=== PATIENT | male | born 1940 | race Caucasian/White ===

== ENCOUNTER 2020-08-10 08:26 | Outpatient (CLI) | payer BC ==
--- NOTE | 2020-08-10 09:35 | MRI ---
MR the lumbar spine without contrast INDICATION: Acute lumbar radiculopathy COMPARISON: Prior MR the lumbar spine from prior radiology associates dated May 05, 2013. TECHNIQUE: Multiplanar multisequence MR images were obtained of lumbar spine without IV contrast. FINDINGS: Bone marrow: There is multilevel Modic endplate degenerative change. There is vacuum disc phenomenon seen within all lumbar intervertebral disc levels. No definite acute fracture is evident. Distal spinal cord and conus: Normal. The conus seen to terminate at L1. Visualized retroperitoneum and paraspinal soft tissues: Normal. Vertebral levels: L5-S1: There is a broad-based disc bulge with moderate right and mild left facet joint degenerative c hange and loss of disc space height. Constellation of degenerative findings induces moderate left and mild right neural foraminal narrowing which is stable.. L4-5: There is a broad-based disc bulge with severe facet joint degenerative change and ligamentum fl avum hypertrophy inducing severe central canal narrowing with moderate bilateral neural foraminal narrowing. The degree of the central canal narrowing has significantly worsened from the prior examin ation. The bilateral neural foraminal narrowing is also worsened from the prior exam. L3-4: There is a broad-based disc osteophyte complex with facet hypertrophy inducing moderate to galo re central canal narrowing with moderate right and moderate to severe left neural foraminal narrowing. This has worsened from the prior exam. L2-3: There is a disc osteophyte complex with facet joint degenerative change inducing now moderate c entral canal narrowing with moderate left and [id number] right neural foraminal narrowing that has worsened from the prior exam. L1-L2: There is a broad-based disc bulge and facet hypertrophy inducing mild central canal narrowing and mild bilateral neural foraminal narrowing that has mildly worsened from the prior exam. T12-L1: There is a broad-based disc bulge causing some mild effacement of ventral subarachnoid space without conus compression. No appreciable neural foraminal narrowing is evident. IMPRESSION: 1. Worsening multilevel central canal and neural foraminal narrowing from L1-2 through L4-5. 2. Stable moderate left and mild right neural foraminal narrowing at L5-S1.
== END 2020-08-10 08:27 | disposition home or self-care (01) ==
LOC: TBSIIMAG 08:26
PROVIDERS: ATTEND Anesthesiology Pain Medicine
DX: M54.16 Radiculopathy, lumbar region (principal); M48.061 Spinal stenosis, lumbar region without neurogenic claudication; M48.07 Spinal stenosis, lumbosacral region
CPT/HCPCS: 72148

== ENCOUNTER 2020-11-23 10:45 | Inpatient (IN) | payer BC, MEDICARE ==
[2020-11-24 16:47] VITALS: BMI 32.5
--- NOTE | 2020-11-28 05:49 | HP ---
REASON FOR H AND P: Surgery on 11/28/2020, case #[id number]. CHIEF COMPLAINT: Lower back and leg pain. HISTORY OF PRESENT ILLNESS: Mr. Buchanan is a 79-year-old male who has been having lower back pain for 10 years. He attributes the pain to lifting a heavy bucket. Pain and paresthesia radiate into his right lateral ankle and all his toes. He can only walk two blocks before he has to stop. Bending forward alleviates his symptoms. He reports his right leg becomes weaker the farther he walks. Physical therapy and spinal canal injections have not alleviated his symptom. He denies bladder or bowel dysfunction. REVIEW OF SYSTEMS: CONSTITUTIONAL: Denies fever or chills. ENT: Denies change in vision or hearing. CARDIAC: Denies chest pain, shortness of breath, or diaphoresis. PULMONARY: Denies shortness of breath, cough, or hemoptysis. GI: Denies fecal incontinence, abdominal pain, nausea, vomiting, diarrhea, change in stool formation and consistency. : Denies urinary incontinence, trouble with urination, frequency of urination, or bloody urine. SKIN: Denies skin rash, bruising, bleeding, skin masses. MUSCULOSKELETAL: As per history of present illness. NEUROLOGIC: As per history of present illness. PSYCHOLOGICAL: Denies anxiety, depression, or behavior changes. PAST MEDICAL HISTORY: Hypertension, hyperlipidemia, CAD, aortic stenosis. PAST SURGICAL HISTORY: Knee surgery, Dr. Stewatr, 1994. Cardiac cath and stent to RCA, Dr. Kennedy in March 2009. Aortic valve replacement. Right TKR, , December 2014. HOSPITALIZATIONS: As above surgeries. FAMILY HISTORY: Father at 84 years, diagnosed with heart disease. Mother at 70 years, diagnosed with cancer. SOCIAL HISTORY: Nonsmoker. Denies illicit drugs. Denies alcohol use. MEDICATIONS: 1. Folic acid 1 mg. 2. Dupixent 300 mg/2 mL. 3. Baby aspirin. 4. Honaker-3 1000 mg. 5. Amlodipine 20 mg. 6. Pantoprazole 40 mg. 7. Plavix 75 mg. 8. [place] 7.5/325 mg. 9. Metoprolol 50 mg. 10. Centrum Silver. ALLERGIES: NO KNOWN DRUG ALLERGIES. PHYSICAL EXAMINATION: VITAL SIGNS: Weight 219, height 69 inches, BMI 32.34. HEENT: Pupils are equal. Extraocular movements are intact. NECK: Soft, supple. No masses are noted. Range of motion is intact and nonpainful. NEUROLOGIC: Awake, alert, and oriented x3. Memory, attention, fund of knowledge normal. Cranial nerves are grossly intact. Motor exam, there is normal strength in the iliopsoas, quadriceps, hamstrings, anterior tib, gastroc veins and toe flexors. There is mild EHL weakness on the right. Sensory exam, bilateral L5, loss of sensation. Right S1 is greater than left. Reflex exam is hypoactive and symmetric. IMAGING: MRI of the L-spine, stenosis at L2-3, L3-4, L4-5. Right L5-S1 foraminal collapse. X-ray of the L-spine flexion-extension stable. ASSESSMENT: 1. Lumbar foraminal stenosis. 2. Lumbar stenosis with neurogenic claudication. PLAN: 1. Laminectomy L2-S1 and TLIF L5-S1 for right foraminal collapse. 2. Preop labs, CBC, PT, PTT, COVID-19. 3. Clearance. 4. Off Plavix. Can continue baby aspirin if necessary. INFORMED CONSENT: We discussed the indications, risks, benefits, alternatives, and expected results from surgery. The risks discussed included, but were not limited to, bleeding, infection, CSF leak, nerve damage, weakness, incontinence, cauda equina injury, arachnoiditis, paralysis, ventilator dependency, wheelchair dependency, loss of vision, hardware misplacement, cardiopulmonary complications of anesthesia or . Long-term complications discussed included, but were not limited to, degeneration of surrounding disk and future surgery. He understands the risks and is willing to proceed. Job ID: [id number]
[2020-11-28] MEDS ORDERED: Bupivacaine PF 0.5% 30 ML VIAL ONE (06:10)
[2020-11-28] MEDS ORDERED: EPINEPHrine 1 MG/ML AMP ONE (06:10)
[2020-11-28] MEDS ORDERED: Thrombin 5000 UNITS/5 ML VIAL ONE (06:10)
[2020-11-28] MEDS ORDERED: Fentanyl 250 MCG/5 ML VIAL ONE (06:46)
[2020-11-28] MEDS ORDERED: Ketamine 50 MG/ML (10ML VIAL) ONE (06:46)
[2020-11-28] MEDS ORDERED: Albumin 5% 500 ML ONE (06:46)
[2020-11-28 07:05] LABS: Anion Gap 12 mmol/L (10-20); BUN (Urea Nitrogen) 19 mg/dL (8.4-25.7); Calc. Creatinine Clearance 109 mL/min (70-130); Calcium 8.9 mg/dL (7.8-10.44); Carbon Dioxide 26 mmol/L (23-31); Chloride 106 mmol/L (98-107); Glucose 98 mg/dL (83-110); Potassium 3.8 mmol/L (3.5-5.1); Sodium 140 mmol/L (136-145)
[2020-11-28] MEDS ORDERED: Rocuronium Bromide 10 MG/ML (10ML VIAL) ONE (10:10)
[2020-11-28] MEDS ORDERED: ePHEDrine 50 MG/ML VIAL ONE (10:10)
[2020-11-28] MEDS ORDERED: Dexamethasone 20 MG/5 ML VIAL ONE (10:10)
[2020-11-28] MEDS ORDERED: PROPOFOL 200 MG/20 ML VIAL ONE (10:10)
[2020-11-28] MEDS ORDERED: Vecuronium 10 MG VIAL ONE (10:10)
[2020-11-28] MEDS ORDERED: Lidocaine 1% PF 5 ML VIAL ONE (10:10)
[2020-11-28] MEDS ORDERED: Ondansetron PF 4 MG/2 ML Vial ONE (10:10)
[2020-11-28] MEDS ORDERED: SUGAMMADEX SODIUM 200 MG/2 ML VIAL ONE (13:03)
[2020-11-28] MEDS ORDERED: traMADol HCl 50 MG TAB PO PRN (13:42)
[2020-11-28] MEDS ORDERED: Tamsulosin HCl 0.4 MG CAP PO PRN (13:42)
[2020-11-28] MEDS ORDERED: Promethazine HCl 25 MG/ML VIAL IM PRN ×2 (13:42→14:09)
[2020-11-28] MEDS ORDERED: Mag-Al 1200 mg/1200 mg/30 ML UDCUP PO PRN (13:42)
[2020-11-28] MEDS ORDERED: Promethazine 25 MG TAB PO PRN (13:42)
[2020-11-28] MEDS ORDERED: Scopolamine 1.5 mg/72 hour Patch TD PRN (13:42)
[2020-11-28] MEDS ORDERED: diphenhydrAMINE 25 MG CAP PO PRN (13:42)
[2020-11-28] MEDS ORDERED: Fentanyl 100 MCG/2 ML VIAL ONE ×2 (13:43→15:56)
[2020-11-28] MEDS ORDERED: DUPILUMAB 300 MG/2 ML FS SCH (14:00)
[2020-11-28] MEDS ORDERED: Promethazine HCl 25 MG/ML VIAL SLOW IVP PRN (14:09)
[2020-11-28] MEDS ORDERED: Morphine Sulfate 2 MG/ML SYRINGE SLOW IVP PRN (14:09)
[2020-11-28] MEDS ORDERED: HYDROmorphone 2 MG/ML VIAL SLOW IVP PRN (14:09)
[2020-11-28] MEDS ORDERED: Ondansetron HCl/PF 4 MG/2 ML Vial IVP PRN (14:09)
[2020-11-28] MEDS ORDERED: PACU-Morphine 4MG/ML VIAL SLOW IVP PRN (14:09)
[2020-11-28] MEDS ORDERED: Ketorolac Tromethamine 30 MG/ML VIAL ONE (14:40)
[2020-11-28] MEDS: CEFAZOLIN 2 GM in Premix Bag 1 BAG IVPB SCH ×2 (17:58→21:30)
--- NOTE | 2020-11-28 19:29 | OP ---
DATE OF PROCEDURE: 11/28/2020 METALLURGIST HELPER: Davon Amezquita PA-C. PREOPERATIVE INDICATION: Treat pain and prevent neurological deterioration. PREOPERATIVE DIAGNOSIS: Multilevel lumbar stenosis with severe neurogenic claudication, right L5-S1 foraminal stenosis from collapse of the L5-S1 interspace with L5 radiculopathy. POSTOPERATIVE DIAGNOSIS: Multilevel lumbar stenosis with severe neurogenic claudication, right L5-S1 foraminal stenosis from collapse of the L5-S1 interspace with L5 radiculopathy. OPERATIVE PROCEDURE: 1. Decompressive laminectomy, medial facetectomy, and foraminotomy at L2-3, 3-4, 4-5, and 5-1. 2. Transforaminal lumbar interbody arthrodesis, L5-S1. 3. Pedicle screw and luis alberto instrumentation, L5-S1. 4. Placement of intervertebral biomechanical device, L5-S1. 5. Posterolateral arthrodesis, L5-S1. 6. Local morselized autograft morselized allograft. PREOPERATIVE MEDICATIONS: Ancef 2 g IV. DRAIN NUMBER: Zero. DRAIN TYPE: None. DESCRIPTION OF PROCEDURE: The patient was brought to the operating room. General endotracheal anesthesia was induced. The patient was carefully positioned on the Thomas frame with his chest and hips supported by the appropriate attachments for the Thomas frame. A lateral fluoro radiograph was used to plan our incision. The lumbar skin was sterilely prepped and draped. We opened a midline incision with a 10 blade knife and we controlled bleeding with bipolar and monopolar cautery. We used monopolar cautery to dissect through subcutaneous tissues to the thoracodorsal fascia. We incised the fascia in midline and reflected the paraspinal muscles off the spinous process and lamina of L2, L3, L4, L5 and the top of the sacrum. A lateral fluoro radiograph confirmed the levels upon which we were operating. We then used an Adson rongeur to remove spinous processes from L2 to the top of the sacrum. Using Kerrison rongeur, we fashioned a laminectomy down the midline. Using a high-speed drill, we thinned the remaining portion of the lamina on both sides of the spinal canal and then used a Kerrison rongeur to widen our laminectomy defect down the right and the left sides. We had to perform foraminotomies over the exiting nerve roots to ensure the L2, L3, L4, L5 nerve roots were decompressed in their respective foramina. The tightest foramen was the right L5-S1 foramen as predicted by the MRI scan. With the decompression of the canal secure, we focused our attention on the interbody arthrodesis at L5-S1 on the right. We performed a complete facetectomy at L5-S1 on the right side. We identified the L5 nerve root. We widely decompressed in its foramen and then we used the foramen as our access to the intervertebral space. We incised the space with a 15 blade knife and removed disk contents using curettes and rongeurs. We used a rectangular bone rasp to measure the height of the interspace to 12 mm. A 12 mm PEEK intervertebral graft was brought into the field. This was loaded with demineralized bone matrix and morselized autograft and advanced into the interspace under radiographic guidance to the appropriate depth. The morcellized autograft was from our laminectomy bone which was cleaned of soft tissue attachments, morcellized, and added into demineralized bone matrix as our fusion substrate. With the interbody graft in place, we turned our attention to pedicle screw instrumentation. Using bony anatomic landmarks, palpation of the medial portion of the pedicles, and a lateral fluoro radiograph as our guide, we chose entry points for pedicle screws at L5 and S1 bilaterally. We drilled out our entry points and used a bone awl to advance through the pedicles into the vertebral bodies. We used a threaded tap to tap each of the trajectories and then placed our pedicle screws at L5 and S1 bilaterally. A 360-degree image set was generated with our isocentric C-arm. This confirmed adequate positioning of our pedicle screw instrumentation. We then irrigated copiously with bacitracin irrigation. We decorticated the transverse process of L5 and the sacral ala bilaterally. Over the decorticated bone, we left demineralized bone matrix and morselized autograft as our posterolateral fusion substrate. We brought rods into the screw heads and tightened caps over the rods. Using a torque/counter-torque mechanism, we ensured adequate tightness. Before final tightening, we applied a compressive force across the L5-S1 interspace to keep our interbody graft in place. We ensured the L5 nerve roots were still decompressed in their foramina. We then waxed the bone edges. We controlled bleeding with gentle bipolar cautery. We infused local anesthetic in the paraspinal muscles. We irrigated the center of the wound once again. We treated the wound with vancomycin powder and we closed in anatomical layers. We applied a sterile dressing. This was a clean case, no contamination. Job ID: [id number]
[2020-11-28] MEDS: Sodium Chloride 0.9% 1,000 ML IV SCH (19:51)
[2020-11-28] MEDS: Metoprolol Tartrate 50 MG TAB PO SCH (20:23)
[2020-11-28] MEDS: Atorvastatin Calcium 20 MG TAB PO SCH (20:23)
--- NOTE | 2020-11-28 20:48 | PDOC.HHP ---
Hospitalist HPI Chronic low back pain with neurogenic claudication History of Present Illness: PCP: Dr. Fine The patient is a 79-year-old male with a past medical history significant for HTN, CAD (x1 stent), HLD, GERD, eczema and aortic stenosis that presents to the hospital as a direct admit for a scheduled laminectomy. Patient has a history of lumbar stenosis with severe neurogenic claudication. The patient was admitted for decompression laminectomy of L2-S1 by Dr. Workman. Patient reports that he has had low back pain for 10 years associated with leg pain that is progressively gotten worse. We were consulted for medical management of his chronic conditions. ED Course: Direct admit. Allergies/Adverse Reactions: Allergy/AdvReac Type Severity Reaction Status Date / Time No Known Allergies Allergy Unverified 11/28/20 20:10 Home Medications: Medication Instructions Recorded Confirmed Type Amlodipine Besylate [amLODIPine 10 mg PO DAILY 11/24/20 11/24/20 History Besylate] Aspirin [Aspirin EC] 81 mg PO DAILY 11/24/20 11/24/20 History Atorvastatin Calcium 20 mg PO QPM 11/24/20 11/24/20 History Clopidogrel Bisulfate [Plavix] 75 mg PO DAILY 11/24/20 11/24/20 History Dupilumab [Dupixent Pen] 300 mg SQ Q14D 11/24/20 11/24/20 History Folic Acid 400 mg PO DAILY 11/24/20 11/24/20 History HYDROcodone Bit/APAP 7.5/325 1 tab PO Q6HR PRN 11/24/20 11/24/20 History [[place] 7.5/325] Metoprolol Tartrate [Lopressor] 50 mg PO BID 11/24/20 11/24/20 History Multivit-Min/FA/Lycopen/Lutein 1 each PO DAILY 11/24/20 11/24/20 History [Centrum Silver Men Tablet] [place]-3 Fatty Acids/Fish Oil [Fish 1,400 cap PO DAILY 11/24/20 11/24/20 History Oil 1,000 mg Capsule] Pantoprazole [Protonix] 40 mg PO QPM 11/24/20 11/24/20 History Past History: PMHx: HTN, HLD, aortic stenosis, CAD, GERD, eczema PSHx: Bilateral total knee replacement, cardiac cath with stent (2008), AVR FHx: Contributory for cardiac disease and cancer Social: Patient with a spouse at home. No history of smoking, illicit drug use or heavy alcohol intake. He is independent. He does not work. Hospitalist HPI ROS Constitutional: denies: fever, chills Eyes: denies: vision change, redness ENT: denies: throat swelling Respiratory: denies: cough, shortness of breath, hemoptysis, sputum, wheezing Cardiovascular: denies: chest pain, palpitations, edema, light headedness Gastrointestinal: denies: nausea, vomiting, abdominal pain, diarrhea, constipation Genitourinary: denies: dysuria, hematuria Skin: denies: rash, bruising Neurological: denies: incoordination, change in speech, confusion All other systems reviewed; all pertinent +/- noted in HPI/Subj Hospitalist Exam Vitals: Vital Signs (12 hours) Temp Pulse Resp BP Pulse Ox 11/28/20 18:35 98.6 F 70 18 156/75 H 94 L Weight Weight 220 lb General Appearance: NAD, awake alert. negative: ill appearing Eye: anicteric sclera ENT: normocephalic atraumatic Neck: supple, no lymphadenopathy Heart: RRR, no murmur, no gallops, no rubs, irregular Respiratory: CTAB, no wheezes, no rales, no ronchi, no tachypnea Gastrointestinal: soft, non-tender, non-distended, normal bowel sounds, no guarding, no rigidity Extremities: no cyanosis, no edema Skin: no rashes Neurological: cranial nerve grossly intact, no focal deficits Psychiatric: normal affect, A&O x 3 Hospitalist Results Result Diagrams: 11/28/20 06:40 Lab results: Laboratory Last Values Sodium 140 mmol/L (136-145) 11/28/20 06:40 Potassium 3.8 mmol/L (3.5-5.1) 11/28/20 06:40 Chloride 106 mmol/L (98-107) 11/28/20 06:40 Carbon Dioxide 26 mmol/L (23-31) 11/28/20 06:40 Anion Gap 12 mmol/L (10-20) 11/28/20 06:40 BUN 19 mg/dL (8.4-25.7) 11/28/20 06:40 Creatinine 0.79 mg/dL (0.7-1.3) 11/28/20 06:40 Estimated GFR (MDRD) Greater than 90 11/28/20 06:40 Glucose 98 mg/dL (83-110) 11/28/20 06:40 Calcium 8.9 mg/dL (7.8-10.44) 11/28/20 06:40 Blood Type A POSITIVE 11/28/20 06:55 Antibody Screen NEGATIVE 11/28/20 06:40 Hospitalist H&P A/P (1) CAD (coronary artery disease) Code(s): I25.10 - ATHSCL HEART DISEASE OF [place] CORONARY ARTERY W/O ANG PCTRS Status: Chronic (2) HTN (hypertension) Code(s): I10 - ESSENTIAL (PRIMARY) HYPERTENSION Status: Chronic (3) HLD (hyperlipidemia) Code(s): E78.5 - HYPERLIPIDEMIA, UNSPECIFIED Status: Chronic (4) Aortic stenosis Code(s): I35.0 - NONRHEUMATIC AORTIC (VALVE) STENOSIS Status: Chronic (5) Eczema Code(s): L30.9 - DERMATITIS, UNSPECIFIED Status: Chronic (6) GERD (gastroesophageal reflux disease) Code(s): K21.9 - GASTRO-ESOPHAGEAL REFLUX DISEASE WITHOUT ESOPHAGITIS Status: Chronic (7) Lumbar stenosis with neurogenic claudication Code(s): M48.062 - SPINAL STENOSIS, LUMBAR REGION WITH NEUROGENIC CLAUDICATION Status: Chronic Plan: #CAD Stent x1 (2008) AVR Agree with continuing home BB, CCB, baby aspirin. Agree with holding Plavix. Neurosurgery to determine the appropriate time to restart Plavix. #HTN Chronic, stable. Agree with restarting home dose BB and CCB. #HLD Agree with restarting home dose atorvastatin. #Aortic stenosis Status post AVR. #Eczema Chronic. Takes dupilumab q. 14 days. #GERD Agree with restarting home dose Protonix. #Lumbar stenosis with neurogenic claudication POD #0 L2-S[address] Workman Plan per neurosurgery. CODE STATUS full code. Discussed the case with attending physician, Dr. Rob, who agrees with plan of care.
[2020-11-28] MEDS: Acetaminophen 325 MG TAB PO PRN (21:33)
[2020-11-29] MEDS: Sodium Chloride 0.9% 1,000 ML IV SCH ×2 (00:07→15:54)
[2020-11-29 06:40] LABS: #Lymphocytes 1.1 thou/uL (1.20-3.40); #Monocytes 1.6 thou/uL (0.11-0.59); %Basophils 0.1 % (0.0-1.0); %Eosinophils 0.1 % (0.0-10.0); %Lymphocytes 8.3 % (21.0-51.0); %Monocytes 11.4 % (0.0-10.0); %Neutrophils 80.1 % (42.0-75.0); Hemoglobin 10.5 g/dL (14.0-18.0); Mean Corpuscular Hemoglobin 35.2 pg (27.0-31.0); Mean Platelet Volume 8.2 fL (7.4-10.4); Platelet Count 219 thou/uL (130-400); RBC Distribution Width 11.7 % (11.5-14.5); Red Blood Cell (RBC) Count 2.98 mill/uL (4.70-6.10); White Blood Cell (WBC) Count 13.7 thou/uL (4.8-10.8)
[2020-11-29 07:02] LABS: Anion Gap 9 mmol/L (10-20); BUN (Urea Nitrogen) 21 mg/dL (8.4-25.7); Calc. Creatinine Clearance 115 mL/min (70-130); Carbon Dioxide 27 mmol/L (23-31); Chloride 106 mmol/L (98-107); Glucose 121 mg/dL (83-110); Potassium 4.7 mmol/L (3.5-5.1); Sodium 137 mmol/L (136-145)
--- NOTE | 2020-11-29 07:06 | PRG ---
DATE OF SERVICE: 11/29/2020 Mr. Buchanan is one day out from decompression over multiple segments of his lumbar spine and a fusion at L5-S1. His legs feel better than they did before surgery, especially the right leg which was particularly bad before his operation. Overnight, no fevers have been recorded on the electronic chart. Blood pressures have been in the 110s to 140s. There is good neurological function including both strength and sensation in both lower extremities. Hemoglobin is 10.5 this morning. We are going to mobilize Mr. Buchanan today. When he gets up and out of bed, he can have the brace on. He does not need it when he is sleeping. He is going to practice getting in and out of bed. He will practice using the restroom. If he is walking around the nurses station multiple times and he is safe for activities of daily living, he can be discharged. Otherwise, that can happen tomorrow. We discussed wound care and followup arrangements. Job ID: [id number] [facility]
[2020-11-29] MEDS: Folic Acid 1 MG TAB PO SCH (08:08)
[2020-11-29] MEDS: Amlodipine 10 MG TAB PO SCH (08:08)
[2020-11-29] MEDS: Metoprolol Tartrate 50 MG TAB PO SCH ×2 (08:08→21:08)
[2020-11-29] MEDS: HYDROcodone/Acetaminophen 7.5/325 mg Tablet PO PRN ×2 (10:20→18:15)
--- NOTE | 2020-11-29 14:45 | PDOC.HOSPP ---
- Subjective Encounter Date: 11/29/20 Encounter Time: 10:28 Subjective: Patient seen this morning. He is doing well. Participated in his physical therapy. He has a black color brace can be worn during ambulation. - Objective Vital Signs & Weight: Vital Signs (12 hours) Temp Pulse Resp BP BP Pulse Ox 11/29/20 11:02 98.4 F 68 18 120/68 93 L 11/29/20 08:08 65 110/64 11/29/20 07:26 98.4 F 65 18 110/56 L 94 L 11/29/20 03:33 98.4 F 59 L 14 112/68 95 Weight Weight 220 lb I&O: 11/28/20 11/29/20 11/30/20 06:59 06:59 06:59 Intake Total 1185 Balance 1185 Result Diagrams: 11/29/20 06:00 11/29/20 06:00 Hospitalist ROS - Medication Medications: Active Medications Generic Name Dose Route Start Last Admin Trade Name Freq PRN Reason Stop Dose Admin Acetaminophen 650 mg 11/28/20 13:42 11/28/20 21:33 Acetaminophen 325 Mg Tab PO 650 mg Q4H PRN Administration Headache/Fever or Pain Hydrocodone Bitart/Acetaminophen 1 tab 11/28/20 13:47 11/29/20 10:20 Hydrocodone/Acetaminophen 7.5/325 Mg Tablet PO 1 tab Q6H PRN Administration Moderate to Severe Pain (6-10) Amlodipine Besylate 10 mg 11/29/20 09:00 11/29/20 08:08 Amlodipine 10 Mg Tab PO Not Given DAILY KEISHA Atorvastatin Calcium 20 mg 11/28/20 21:00 11/28/20 20:23 Atorvastatin Calcium 20 Mg Tab PO 20 mg QPM KEISHA Administration Diphenhydramine HCl 25 mg 11/28/20 13:42 11/29/20 03:38 Diphenhydramine 25 Mg Cap PO 25 mg Q6H PRN Administration Itching Folic Acid 0.5 mg 11/29/20 09:00 11/29/20 08:08 Folic Acid 1 Mg Tab PO 0.5 mg DAILY KEISHA Administration Sodium Chloride 1,000 mls @ 75 mls/hr 11/28/20 13:45 11/29/20 00:07 Normal Saline 0.9% IV 1,000 mls .[id number] KEISHA Administration Metoprolol Tartrate 50 mg 11/28/20 21:00 11/29/20 08:08 Metoprolol Tartrate 50 Mg Tab PO Not Given BID [facility] Pantoprazole Sodium 40 mg 11/28/20 21:00 11/28/20 20:23 Pantoprazole 40 Mg Tab PO 40 mg QPM KEISHA Administration Hospitalist Exam Vitals: Vital Signs (12 hours) Temp Pulse Resp BP BP Pulse Ox 11/29/20 11:02 98.4 F 68 18 120/68 93 L 11/29/20 08:08 65 110/64 11/29/20 07:26 98.4 F 65 18 110/56 L 94 L 11/29/20 03:33 98.4 F 59 L 14 112/68 95 Weight Weight 220 lb General Appearance: NAD, awake alert Eye: PERRL ENT: normocephalic atraumatic Neck: supple Heart: RRR, normal peripheral pulses Respiratory: CTAB, normal chest expansion Gastrointestinal: soft, normal bowel sounds Neurological: cranial nerve grossly intact, no new deficit Musculoskeletal: normal tone Psychiatric: normal affect, normal behavior, A&O x 3 Hosp A/P - Plan CAD (coronary artery disease) Code(s): I25.10 - ATHSCL HEART DISEASE OF [place] CORONARY ARTERY W/O ANG PCTRS Status: Chronic (2) HTN (hypertension) Code(s): I10 - ESSENTIAL (PRIMARY) HYPERTENSION Status: Chronic (3) HLD (hyperlipidemia) Code(s): E78.5 - HYPERLIPIDEMIA, UNSPECIFIED Status: Chronic (4) Aortic stenosis Code(s): I35.0 - NONRHEUMATIC AORTIC (VALVE) STENOSIS Status: Chronic (5) Eczema Code(s): L30.9 - DERMATITIS, UNSPECIFIED Status: Chronic (6) GERD (gastroesophageal reflux disease) Code(s): K21.9 - GASTRO-ESOPHAGEAL REFLUX DISEASE WITHOUT ESOPHAGITIS Status: Chronic (7) Lumbar stenosis with neurogenic claudication Code(s): M48.062 - SPINAL STENOSIS, LUMBAR REGION WITH NEUROGENIC CLAUDICATION Status: Chronic Plan: #Lumbar stenosis with neurogenic claudication L2-S1 shelli by Dr. Workman on Leukocytosis secondary to above -Monitor the trend #CAD Stent x1 (2008) AVR Agree with continuing home BB, CCB, baby aspirin. Agree with holding Plavix. Neurosurgery to determine the appropriate time to restart Plavix. #HTN Chronic, stable. Agree with restarting home dose BB and CCB. #HLD Agree with restarting home dose atorvastatin. #Aortic stenosis Status post TAVR. #Eczema, Chronic. Takes dupilumab q. 14 days. #GERD Agree with restarting home dose Protonix. CODE STATUS full code. Ongoing physical therapy and possible inpatient rehab
[2020-11-29] MEDS: Acetaminophen 325 MG TAB PO PRN ×2 (17:16→23:42)
[2020-11-29] MEDS: Atorvastatin Calcium 20 MG TAB PO SCH (21:08)
[2020-11-29] MEDS: tiZANidine HCl 4 MG TAB PO PRN (23:42)
[2020-11-30] MEDS: Sodium Chloride 0.9% 1,000 ML IV SCH ×2 (04:33→20:21)
[2020-11-30 06:54] LABS: #Lymphocytes 1.2 thou/uL (1.20-3.40); #Monocytes 1.5 thou/uL (0.11-0.59); #Neutrophils 9.3 thou/uL (1.40-6.50); %Basophils 0.3 % (0.0-1.0); %Eosinophils 0.3 % (0.0-10.0); %Lymphocytes 10.1 % (21.0-51.0); %Monocytes 12.1 % (0.0-10.0); %Neutrophils 77.1 % (42.0-75.0); Hemoglobin 9.9 g/dL (14.0-18.0); Mean Corpuscular HGB CONC 34.8 g/dL (32.0-36.0); Mean Corpuscular Hemoglobin 34.9 pg (27.0-31.0); Mean Platelet Volume 8.1 fL (7.4-10.4); Platelet Count 205 thou/uL (130-400); RBC Distribution Width 11.5 % (11.5-14.5); Red Blood Cell (RBC) Count 2.85 mill/uL (4.70-6.10); White Blood Cell (WBC) Count 12.1 thou/uL (4.8-10.8)
[2020-11-30 07:05] LABS: Anion Gap 10 mmol/L (10-20); BUN (Urea Nitrogen) 16 mg/dL (8.4-25.7); Calc. Creatinine Clearance 121 mL/min (70-130); Calcium 8.1 mg/dL (7.8-10.44); Carbon Dioxide 27 mmol/L (23-31); Chloride 102 mmol/L (98-107); Glucose 107 mg/dL (83-110); Potassium 4.5 mmol/L (3.5-5.1); Sodium 134 mmol/L (136-145)
[2020-11-30] MEDS: Folic Acid 1 MG TAB PO SCH (09:09)
[2020-11-30] MEDS: Metoprolol Tartrate 50 MG TAB PO SCH ×2 (09:09→20:21)
[2020-11-30] MEDS: Amlodipine 10 MG TAB PO SCH (09:09)
[2020-11-30] MEDS: Morphine 2 MG/ML VIAL SLOW IVP PRN ×2 (09:14→14:01)
[2020-11-30] MEDS: tiZANidine HCl 4 MG TAB PO PRN ×2 (09:14→20:24)
--- NOTE | 2020-11-30 11:29 | PRG ---
DATE OF SERVICE: 11/30/2020 I saw Kel Buchanan in his hospital room this morning. He and his were concerned about drainage from the wound. He started feeling a little bit ill yesterday afternoon and has not done much physical therapy this morning. He did walk yesterday, noticed his legs were feeling better than they did before surgery, but the back was sore. Maximum temperature I see recorded is 99.8 degrees Fahrenheit, blood pressure is in the 120s to 130s. There is good neurological function in lower extremities. I will encourage Mr. Buchanan to use a Voldyne incentive spirometer 10 times every hour to expand his lungs. I will check a UA and urine culture to look for urinary tract infection. We will encourage mobilization is the best treatment for muscle spasm and the amount of drainage, although noteworthy is not terribly concerning to me. Bandages can be reapplied until it stops which it will. Job ID: [id number] [facility]
--- NOTE | 2020-11-30 12:58 | PDOC.HOSPP ---
- Subjective Encounter Date: 11/30/20 Encounter Time: 11:00 Subjective: Patient seen this morning she she is quite nauseated throwing up surgical site on his back has bloody discharge. Nursing aware of that. Neurosurgery will be notified. He also has a headache. Analgesic ordered. - Objective Vital Signs & Weight: Vital Signs (12 hours) Temp Pulse Resp BP Pulse Ox 11/30/20 12:00 98.1 F 68 16 122/66 93 L 11/30/20 07:34 99.8 F H 76 16 134/69 96 11/30/20 05:08 98.6 F 69 16 125/70 94 L Weight Weight 220 lb I&O: 11/29/20 11/30/20 12/01/20 06:59 06:59 06:59 Intake Total 1185 1920 Balance 1185 1920 Result Diagrams: 11/30/20 06:35 11/30/20 06:35 Hospitalist ROS - Medication Medications: Active Medications Generic Name Dose Route Start Last Admin Trade Name Freq PRN Reason Stop Dose Admin Acetaminophen 650 mg 11/28/20 13:42 11/29/20 23:42 Acetaminophen 325 Mg Tab PO 650 mg Q4H PRN Administration Headache/Fever or Pain Hydrocodone Bitart/Acetaminophen 1 tab 11/28/20 13:47 11/29/20 18:15 Hydrocodone/Acetaminophen 7.5/325 Mg Tablet PO 1 tab Q6H PRN Administration Moderate to Severe Pain (6-10) Amlodipine Besylate 10 mg 11/29/20 09:00 11/30/20 09:09 Amlodipine 10 Mg Tab PO 10 mg DAILY KEISHA Administration Atorvastatin Calcium 20 mg 11/28/20 21:00 11/29/20 21:08 Atorvastatin Calcium 20 Mg Tab PO 20 mg QPM KEISHA Administration Diphenhydramine HCl 25 mg 11/28/20 13:42 11/29/20 03:38 Diphenhydramine 25 Mg Cap PO 25 mg Q6H PRN Administration Itching Folic Acid 0.5 mg 11/29/20 09:00 11/30/20 09:09 Folic Acid 1 Mg Tab PO 0.5 mg DAILY KEISHA Administration Sodium Chloride 1,000 mls @ 75 mls/hr 11/28/20 13:45 11/30/20 04:33 Normal Saline 0.9% IV Not Given .[id number] KEISHA Metoprolol Tartrate 50 mg 11/28/20 21:00 11/30/20 09:09 Metoprolol Tartrate 50 Mg Tab PO 50 mg BID KEISHA Administration Morphine Sulfate 2 mg 11/28/20 13:42 11/30/20 09:14 Morphine 2 Mg/Ml Vial SLOW IVP 2 mg Q1H PRN Administration Moderate Breakthrough Pain Pantoprazole Sodium 40 mg 11/28/20 21:00 11/29/20 21:08 Pantoprazole 40 Mg Tab PO 40 mg QPM KEISHA Administration Promethazine HCl 12.5 mg 11/28/20 13:42 11/30/20 10:01 Promethazine Hcl 25 Mg/Ml Vial IM 12.5 mg Q4H PRN Administration Nausea/Vomiting Tizanidine HCl 4 mg 11/28/20 13:42 11/30/20 09:14 Tizanidine Hcl 4 Mg Tab PO 4 mg Q6H PRN Administration Muscle Spasm Hospitalist Exam Vitals: Vital Signs (12 hours) Temp Pulse Resp BP Pulse Ox 11/30/20 12:00 98.1 F 68 16 122/66 93 L 11/30/20 07:34 99.8 F H 76 16 134/69 96 11/30/20 05:08 98.6 F 69 16 125/70 94 L Weight Weight 220 lb General Appearance: NAD, awake alert, ill appearing Eye: PERRL ENT: normocephalic atraumatic Neck: supple Heart: RRR, normal peripheral pulses Respiratory: CTAB, normal chest expansion Gastrointestinal: soft, normal bowel sounds Neurological: cranial nerve grossly intact, no focal deficits Psychiatric: normal affect, normal behavior, A&O x 3 Hosp A/P - Plan CAD (coronary artery disease) Code(s): I25.10 - ATHSCL HEART DISEASE OF [place] CORONARY ARTERY W/O ANG PCTRS Status: Chronic (2) HTN (hypertension) Code(s): I10 - ESSENTIAL (PRIMARY) HYPERTENSION Status: Chronic (3) HLD (hyperlipidemia) Code(s): E78.5 - HYPERLIPIDEMIA, UNSPECIFIED Status: Chronic (4) Aortic stenosis Code(s): I35.0 - NONRHEUMATIC AORTIC (VALVE) STENOSIS Status: Chronic (5) Eczema Code(s): L30.9 - DERMATITIS, UNSPECIFIED Status: Chronic (6) GERD (gastroesophageal reflux disease) Code(s): K21.9 - GASTRO-ESOPHAGEAL REFLUX DISEASE WITHOUT ESOPHAGITIS Status: Chronic (7) Lumbar stenosis with neurogenic claudication Code(s): M48.062 - SPINAL STENOSIS, LUMBAR REGION WITH NEUROGENIC CLAUDICATION Status: Chronic Plan: #Lumbar stenosis with neurogenic claudication L2-S1 shelli by Dr. Workman on Leukocytosis secondary to above -Monitor the trend #CAD Stent x1 (2008) AVR Agree with continuing home BB, CCB, baby aspirin. Agree with holding Plavix. Neurosurgery to determine the appropriate time to restart Plavix. #HTN Chronic, stable. Agree with restarting home dose BB and CCB. #HLD Agree with restarting home dose atorvastatin. #Aortic stenosis Status post TAVR. #Eczema, Chronic. Takes dupilumab q. 14 days. #GERD Agree with restarting home dose Protonix. CODE STATUS full code. Ongoing physical therapy and possible inpatient rehab Nausea headache and bloody discharge from the laminectomy site. --Neurosurgery aware of it - Analgesic and muscle relaxant as well as antiemetic Follow-up on urine analysis Encourage mobilization with physical therapy -
[2020-11-30] MEDS: Acetaminophen 325 MG TAB PO PRN (17:03)
[2020-11-30] MEDS: Atorvastatin Calcium 20 MG TAB PO SCH (20:21)
[2020-11-30] MEDS: HYDROcodone/Acetaminophen 7.5/325 mg Tablet PO PRN (20:24)
[2020-12-01] MEDS: Acetaminophen 325 MG TAB PO PRN ×2 (05:07→10:08)
[2020-12-01 05:14] LABS: #Lymphocytes 1.1 thou/uL (1.20-3.40); #Monocytes 1.3 thou/uL (0.11-0.59); #Neutrophils 10.2 thou/uL (1.40-6.50); %Basophils 0.2 % (0.0-1.0); %Eosinophils 0.3 % (0.0-10.0); %Lymphocytes 8.4 % (21.0-51.0); %Monocytes 10.1 % (0.0-10.0); Mean Corpuscular HGB CONC 34.6 g/dL (32.0-36.0); Mean Corpuscular Volume 98.2 fL (78.0-98.0); Mean Platelet Volume 8.2 fL (7.4-10.4); Platelet Count 224 thou/uL (130-400); RBC Distribution Width 11.4 % (11.5-14.5); Red Blood Cell (RBC) Count 2.95 mill/uL (4.70-6.10); White Blood Cell (WBC) Count 12.6 thou/uL (4.8-10.8)
[2020-12-01 05:31] LABS: Lactic Acid 1.1 mmol/L (0.5-2.2)
[2020-12-01 05:37] LABS: ALT (SGPT) 22 U/L (8-55); AST (SGOT) 53 U/L (5-34); Albumin 3.7 g/dL (3.4-4.8); Alkaline Phosphatase 67 U/L (40-110); Anion Gap 10 mmol/L (10-20); Anion Gap 9 mmol/L (10-20); BUN (Urea Nitrogen) 15 mg/dL (8.4-25.7); BUN (Urea Nitrogen) 16 mg/dL (8.4-25.7); Bilirubin, Total 1.8 mg/dL (0.2-1.2); Calc. Creatinine Clearance 116 mL/min (70-130); Calc. Creatinine Clearance 118 mL/min (70-130); Calcium 8.6 mg/dL (7.8-10.44); Carbon Dioxide 29 mmol/L (23-31); Chloride 99 mmol/L (98-107); Globulin 2.8 g/dL (2.4-3.5); Glucose 124 mg/dL (83-110); Glucose 126 mg/dL (83-110); Magnesium 1.9 mg/dL (1.6-2.6); Potassium 4.2 mmol/L (3.5-5.1); Protein, Total 6.5 g/dL (5.8-8.1); Sodium 133 mmol/L (136-145); Sodium 134 mmol/L (136-145)
[2020-12-01 05:44] LABS: Bacteria/HPF None Seen HPF (None Seen); Bilirubin Negative (Negative); Blood, Urine Negative (Negative); Clarity Clear (Clear); Glucose, Urine (Dipstick) Normal (Negative); Ketone, Urine 40 mg/dL (Negative); Leukocyte Negative Leu/uL (Negative); Nitrite Negative (Negative); Protein, Urine (Dipstick) 50 mg/dL (Neg-Trace); RBC/HPF 0-3 HPF (0-3); Specific Gravity, Urine 1.023 (1.002-1.036); Squamous Epithelial 0-3 HPF (0-3); Urobilinogen Normal mg/dL (Less than 2); WBC/HPF 0-3 HPF (0-3); pH, Urine 6.5 (5.0-9.0)
[2020-12-01 05:47] LABS: Urine Culture Reflex No No
--- NOTE | 2020-12-01 07:26 | PRG ---
DATE OF SERVICE: 12/01/2020 I saw Mr. Buchanan is his hospital room this morning. He is postop day 3 from a decompression fusion of the lumbar spine. His back feels stiff. He mobilized with physical therapy yesterday, but was sore. Started using his [place] more aggressively and moving his legs. He feels about the same this morning and yesterday. Maximum temperature I see recorded overnight is 100.3 degrees Fahrenheit. Blood pressures are in the 110s to 130s. I do not find any new motor or sensory deficit in lower extremities. I will get ultrasound of the lower extremities, make sure we do not have a DVT. The Medical Team has already ordered a chest x-ray and is involved in working up this fever. If he defervesces and there are no emergent findings on investigations, he can be moved to inpatient rehab maybe late afternoon today. Otherwise, it can be done tomorrow. Thankfully, his urinalysis was clean. Job ID: [id number]
--- NOTE | 2020-12-01 08:27 | RAD ---
RADIOGRAPH CHEST 1 VIEW: DATE: 12/01/2020 HISTORY: 79-year-old male with sepsis COMPARISON: 03/19/2016 FINDINGS: The thoracic aorta is tortuous and ectatic. There is no evidence of airspace density, pulmonary edema , or pneumothorax. The lateral costophrenic angles are not effaced. There are sternal wires. No cardiomegaly. No interval change. IMPRESSION: 1) No acute pulmonary findings. 2) ectasia of thoracic aorta. 3) signs of previous open-heart surgery.
[2020-12-01] MEDS: Metoprolol Tartrate 50 MG TAB PO SCH ×2 (09:44→19:39)
[2020-12-01] MEDS: Folic Acid 1 MG TAB PO SCH (09:44)
[2020-12-01] MEDS: Amlodipine 10 MG TAB PO SCH (09:44)
[2020-12-01] MEDS: Sodium Chloride 0.9% 1,000 ML IV SCH ×2 (09:44→23:39)
[2020-12-01] MEDS: cefTRIAXone\\ROCEPHIN 1 GM in Sodium Chloride 0.9% 100 ML IVPB SCH (09:53)
[2020-12-01] MEDS: tiZANidine HCl 4 MG TAB PO PRN ×2 (10:08→19:39)
--- NOTE | 2020-12-01 10:17 | ULT ---
EXAM: Bilateral lower extremity venous Doppler HISTORY: Immobility secondary to back surgery. FINDINGS: Grayscale, color-flow, Doppler evaluation, spectral analysis of the bilateral lower extremity venous structures is performed with 2-D imaging. The bilateral common femoral, superficial femoral, popliteal, posterior tibial, proximal greater saphenous and profunda femoral veins are imaged. There is normal luminal compressibility, flow, and augmentation in the visualized deep venous structu res of the bilateral lower extremities. IMPRESSION: No evidence of a deep vein thrombosis in the visualized deep venous structures bilateral lower extrem ities.
--- NOTE | 2020-12-01 14:03 | PDOC.HOSPP ---
- Subjective Encounter Date: 12/01/20 Encounter Time: 11:10 Subjective: Patient is doing much better. He is afebrile this morning. His chest x-ray is negative for any acute infiltrate - Objective Vital Signs & Weight: Vital Signs (12 hours) Temp Pulse Resp BP Pulse Ox 12/01/20 12:00 97.1 F L 69 18 107/55 L 95 12/01/20 09:44 77 12/01/20 07:50 97.9 F 77 20 148/67 H 94 L 12/01/20 05:37 98.3 F 12/01/20 05:07 100.3 F H 12/01/20 04:02 100.3 F H 78 16 131/68 94 L Weight Weight 220 lb I&O: 11/30/20 12/01/20 12/02/20 06:59 06:59 06:59 Intake Total 1920 280 Balance 1920 280 Result Diagrams: 12/01/20 05:00 12/01/20 05:00 Hospitalist ROS - Medication Medications: Active Medications Generic Name Dose Route Start Last Admin Trade Name Freq PRN Reason Stop Dose Admin Acetaminophen 650 mg 11/28/20 13:42 12/01/20 10:08 Acetaminophen 325 Mg Tab PO 650 mg Q4H PRN Administration Headache/Fever or Pain Hydrocodone Bitart/Acetaminophen 1 tab 11/28/20 13:47 11/30/20 20:24 Hydrocodone/Acetaminophen 7.5/325 Mg Tablet PO 1 tab Q6H PRN Administration Moderate to Severe Pain (6-10) Amlodipine Besylate 10 mg 11/29/20 09:00 12/01/20 09:44 Amlodipine 10 Mg Tab PO 10 mg DAILY KEISHA Administration Atorvastatin Calcium 20 mg 11/28/20 21:00 11/30/20 20:21 Atorvastatin Calcium 20 Mg Tab PO 20 mg QPM KEISHA Administration Diphenhydramine HCl 25 mg 11/28/20 13:42 11/29/20 03:38 Diphenhydramine 25 Mg Cap PO 25 mg Q6H PRN Administration Itching Folic Acid 0.5 mg 11/29/20 09:00 12/01/20 09:44 Folic Acid 1 Mg Tab PO 0.5 mg DAILY KEISHA Administration Sodium Chloride 1,000 mls @ 75 mls/hr 11/28/20 13:45 12/01/20 09:44 Normal Saline 0.9% IV Not Given .[id number] KEISHA Ceftriaxone Sodium 1 gm/ 100 mls @ 200 mls/hr 12/01/20 10:00 12/01/20 09:53 Sodium Chloride IVPB 100 mls 1000 KEISHA Administration Metoprolol Tartrate 50 mg 11/28/20 21:00 12/01/20 09:44 Metoprolol Tartrate 50 Mg Tab PO 50 mg BID KEISHA Administration Morphine Sulfate 2 mg 11/28/20 13:42 11/30/20 14:01 Morphine 2 Mg/Ml Vial SLOW IVP 2 mg Q1H PRN Administration Moderate Breakthrough Pain Pantoprazole Sodium 40 mg 11/28/20 21:00 11/30/20 20:21 Pantoprazole 40 Mg Tab PO 40 mg QPM KEISHA Administration Promethazine HCl 12.5 mg 11/28/20 13:42 11/30/20 10:01 Promethazine Hcl 25 Mg/Ml Vial IM 12.5 mg Q4H PRN Administration Nausea/Vomiting Tizanidine HCl 4 mg 11/28/20 13:42 12/01/20 10:08 Tizanidine Hcl 4 Mg Tab PO 4 mg Q6H PRN Administration Muscle Spasm Tramadol HCl 50 mg 11/28/20 13:42 12/01/20 10:07 Tramadol Hcl 50 Mg Tab PO 50 mg Q6H PRN Administration Mild Pain (1-3) Hospitalist Exam Vitals: Vital Signs (12 hours) Temp Pulse Resp BP Pulse Ox 12/01/20 12:00 97.1 F L 69 18 107/55 L 95 12/01/20 09:44 77 12/01/20 07:50 97.9 F 77 20 148/67 H 94 L 12/01/20 05:37 98.3 F 12/01/20 05:07 100.3 F H 12/01/20 04:02 100.3 F H 78 16 131/68 94 L Weight Weight 220 lb General Appearance: NAD, awake alert Eye: PERRL ENT: normocephalic atraumatic Neck: supple Heart: RRR, normal peripheral pulses Respiratory: CTAB, normal chest expansion Gastrointestinal: soft, normal bowel sounds Neurological: cranial nerve grossly intact, no focal deficits Psychiatric: normal affect, normal behavior, A&O x 3 Hosp A/P - Plan CAD (coronary artery disease) Code(s): I25.10 - ATHSCL HEART DISEASE OF [place] CORONARY ARTERY W/O ANG PCTRS Status: Chronic (2) HTN (hypertension) Code(s): I10 - ESSENTIAL (PRIMARY) HYPERTENSION Status: Chronic (3) HLD (hyperlipidemia) Code(s): E78.5 - HYPERLIPIDEMIA, UNSPECIFIED Status: Chronic (4) Aortic stenosis Code(s): I35.0 - NONRHEUMATIC AORTIC (VALVE) STENOSIS Status: Chronic (5) Eczema Code(s): L30.9 - DERMATITIS, UNSPECIFIED Status: Chronic (6) GERD (gastroesophageal reflux disease) Code(s): K21.9 - GASTRO-ESOPHAGEAL REFLUX DISEASE WITHOUT ESOPHAGITIS Status: Chronic (7) Lumbar stenosis with neurogenic claudication Code(s): M48.062 - SPINAL STENOSIS, LUMBAR REGION WITH NEUROGENIC CLAUDICATION Status: Chronic Plan: #Lumbar stenosis with neurogenic claudication L2-S1 shelli by Dr. Workman on Leukocytosis secondary to above -Monitor the trend #CAD Stent x1 (2008) AVR Agree with continuing home BB, CCB, baby aspirin. Agree with holding Plavix. Neurosurgery to determine the appropriate time to restart Plavix. #HTN Chronic, stable. Agree with restarting home dose BB and CCB. #HLD Agree with restarting home dose atorvastatin. #Aortic stenosis Status post TAVR. #Eczema, Chronic. Takes dupilumab q. 14 days. #GERD Agree with restarting home dose Protonix. CODE STATUS full code. Ongoing physical therapy and possible inpatient rehab Nausea headache and bloody discharge from the laminectomy site. --Neurosurgery aware of it - Analgesic and muscle relaxant as well as antiemetic Follow-up on urine analysis------> UA is negative Chest x-ray negative for infiltrate Blood cultures negative for growth x24 hours -I will wait another 24 hours before discontinuing the antibiotics provided culture remains negative and no fever. Doppler ultrasound negative for DVT Encourage mobilization with physical therapy -
[2020-12-01] MEDS: HYDROcodone/Acetaminophen 7.5/325 mg Tablet PO PRN (19:38)
[2020-12-01] MEDS: Atorvastatin Calcium 20 MG TAB PO SCH (19:39)
[2020-12-02] MEDS: HYDROcodone/Acetaminophen 7.5/325 mg Tablet PO PRN ×2 (05:40→12:38)
--- NOTE | 2020-12-02 07:31 | PRG ---
DATE OF SERVICE: 12/02/2020 : I saw Kel Buchanan in his hospital room this morning. He is 4 days out from decompression fusion of lumbar spine. His fever curve has come down and he feels better. Among the electronically recorded vital signs, I see a maximum temperature of 99.1 degrees Fahrenheit. Blood pressures have been 130s to 160s. There is good neurological function in the lower extremities. Mr. Buchanan benefit from inpatient rehab and he can leave this morning. Job ID: [id number] MTDD
[2020-12-02 07:53] LABS: #Eosinphils 0.3 thou/uL (0.0-0.7); #Lymphocytes 1.2 thou/uL (1.20-3.40); #Monocytes 1.2 thou/uL (0.11-0.59); #Neutrophils 7.5 thou/uL (1.40-6.50); %Basophils 0.4 % (0.0-1.0); %Eosinophils 3.1 % (0.0-10.0); %Lymphocytes 11.4 % (21.0-51.0); %Monocytes 11.8 % (0.0-10.0); %Neutrophils 73.4 % (42.0-75.0); Hemoglobin 10.1 g/dL (14.0-18.0); Mean Corpuscular HGB CONC 35.1 g/dL (32.0-36.0); Mean Corpuscular Hemoglobin 34.8 pg (27.0-31.0); Mean Corpuscular Volume 99.3 fL (78.0-98.0); Mean Platelet Volume 8.2 fL (7.4-10.4); Platelet Count 244 thou/uL (130-400); RBC Distribution Width 11.1 % (11.5-14.5); Red Blood Cell (RBC) Count 2.91 mill/uL (4.70-6.10); White Blood Cell (WBC) Count 10.2 thou/uL (4.8-10.8)
[2020-12-02 08:07] LABS: Anion Gap 13 mmol/L (10-20); BUN (Urea Nitrogen) 15 mg/dL (8.4-25.7); Calc. Creatinine Clearance 118 mL/min (70-130); Calcium 8.6 mg/dL (7.8-10.44); Carbon Dioxide 27 mmol/L (23-31); Chloride 97 mmol/L (98-107); Glucose 99 mg/dL (83-110); Potassium 3.8 mmol/L (3.5-5.1); Sodium 133 mmol/L (136-145)
[2020-12-02] MEDS: Folic Acid 1 MG TAB PO SCH (08:27)
[2020-12-02] MEDS: Amlodipine 10 MG TAB PO SCH (08:27)
[2020-12-02] MEDS: Metoprolol Tartrate 50 MG TAB PO SCH (08:28)
[2020-12-02] MEDS: cefTRIAXone\\ROCEPHIN 1 GM in Sodium Chloride 0.9% 100 ML IVPB SCH (09:35)
[2020-12-02] MEDS: Acetaminophen 325 MG TAB PO PRN (09:52)
[2020-12-02 11:21] VITALS: BP 120/66; TEMP 97.4
[2020-12-02] MEDS: Sodium Chloride 0.9% 1,000 ML IV SCH (12:32)
--- NOTE | 2020-12-02 16:09 | PDOC.HOSPP ---
- Subjective Encounter Date: 12/02/20 Encounter Time: 11:50 Subjective: Patient seen this morning. He is going to be transferred this afternoon to the rehab. - Objective Vital Signs & Weight: Vital Signs (12 hours) Temp Pulse Resp BP BP Pulse Ox 12/02/20 11:20 97.4 F L 78 18 120/66 96 12/02/20 08:35 97 12/02/20 08:27 75 155/73 H 12/02/20 05:23 99.4 F 75 18 135/72 96 Weight Weight 220 lb I&O: 12/01/20 12/02/20 12/03/20 06:59 06:59 06:59 Intake Total 280 1570 Balance 280 1570 Result Diagrams: 12/02/20 07:41 12/02/20 07:41 Hospitalist Exam Vitals: Vital Signs (12 hours) Temp Pulse Resp BP BP Pulse Ox 12/02/20 11:20 97.4 F L 78 18 120/66 96 12/02/20 08:35 97 12/02/20 08:27 75 155/73 H 12/02/20 05:23 99.4 F 75 18 135/72 96 Weight Weight 220 lb General Appearance: NAD, awake alert Eye: PERRL ENT: normocephalic atraumatic Neck: supple Heart: RRR, normal peripheral pulses Respiratory: CTAB, normal chest expansion Gastrointestinal: soft, normal bowel sounds Psychiatric: A&O x 3 Hosp A/P - Plan CAD (coronary artery disease) Code(s): I25.10 - ATHSCL HEART DISEASE OF [place] CORONARY ARTERY W/O ANG PCTRS Status: Chronic (2) HTN (hypertension) Code(s): I10 - ESSENTIAL (PRIMARY) HYPERTENSION Status: Chronic (3) HLD (hyperlipidemia) Code(s): E78.5 - HYPERLIPIDEMIA, UNSPECIFIED Status: Chronic (4) Aortic stenosis Code(s): I35.0 - NONRHEUMATIC AORTIC (VALVE) STENOSIS Status: Chronic (5) Eczema Code(s): L30.9 - DERMATITIS, UNSPECIFIED Status: Chronic (6) GERD (gastroesophageal reflux disease) Code(s): K21.9 - GASTRO-ESOPHAGEAL REFLUX DISEASE WITHOUT ESOPHAGITIS Status: Chronic (7) Lumbar stenosis with neurogenic claudication Code(s): M48.062 - SPINAL STENOSIS, LUMBAR REGION WITH NEUROGENIC CLAUDICATION Status: Chronic Plan: #Lumbar stenosis with neurogenic claudication L2-S1 shelli by Dr. Workman on Leukocytosis secondary to above -Monitor the trend #CAD Stent x1 (2008) AVR Agree with continuing home BB, CCB, baby aspirin. Agree with holding Plavix. Neurosurgery to determine the appropriate time to restart Plavix. #HTN Chronic, stable. Agree with restarting home dose BB and CCB. #HLD Agree with restarting home dose atorvastatin. #Aortic stenosis Status post TAVR. #Eczema, Chronic. Takes dupilumab q. 14 days. #GERD Agree with restarting home dose Protonix. CODE STATUS full code. Ongoing physical therapy and possible inpatient rehab Nausea headache and bloody discharge from the laminectomy site. --Neurosurgery aware of it - Analgesic and muscle relaxant as well as antiemetic Follow-up on urine analysis------> UA is negative Chest x-ray negative for infiltrate Blood cultures negative for growth x24 hours -I will wait another 24 hours before discontinuing the antibiotics provided culture remains negative and no fever. Doppler ultrasound negative for DVT Encourage mobilization with physical therapy He will be likely to be transferred to the rehab today. Discharge summary to be done by the primary care provider, neurosurgery. -
== END 2020-12-02 13:02 | DRG 455 ==
LOC: SURG A 11-28 05:24 → SURG B 11-28 19:08
PROVIDERS: ADMIT Neurological Surgery; ATTEND Neurological Surgery
PROC: 0SG30AJ Fusion of Lumbosacral Joint with Interbody Fusion Device, Posterior Approach, Anterior Column, Open Approach (ICD-10-PCS; principal; 2020-11-28)
PROC: 0SG3071 Fusion of Lumbosacral Joint with Autologous Tissue Substitute, Posterior Approach, Posterior Column, Open Approach (ICD-10-PCS; 2020-11-28)
PROC: 01NB0ZZ Release Lumbar Nerve, Open Approach (ICD-10-PCS; 2020-11-28)
PROC: 01NR0ZZ Release Sacral Nerve, Open Approach (ICD-10-PCS; 2020-11-28)
PROC: 0SB20ZZ Excision of Lumbar Vertebral Disc, Open Approach (ICD-10-PCS; 2020-11-28)
DX: M48.062 Spinal stenosis, lumbar region with neurogenic claudication (principal); I10 Essential (primary) hypertension; K21.9 Gastro-esophageal reflux disease without esophagitis; I35.0 Nonrheumatic aortic (valve) stenosis; L30.9 Dermatitis, unspecified; M54.16 Radiculopathy, lumbar region; Z96.653 Presence of artificial knee joint, bilateral; M19.90 Unspecified osteoarthritis, unspecified site; E78.2 Mixed hyperlipidemia; I25.10 Atherosclerotic heart disease of native coronary artery without angina pectoris; R51.9 Headache, unspecified; D72.829 Elevated white blood cell count, unspecified; Z95.4 Presence of other heart-valve replacement; Z82.49 Family history of ischemic heart disease and other diseases of the circulatory system; Z80.9 Family history of malignant neoplasm, unspecified; Z79.82 Long term (current) use of aspirin; Z79.899 Other long term (current) drug therapy; Z79.01 Long term (current) use of anticoagulants; Z95.5 Presence of coronary angioplasty implant and graft
CPT/HCPCS: 36415; 71045; 76000; 80048; 81001; 83605; 83735; 85025; 86850; 86900; 86901; 87040; 87086; 93970; C1713; C1768; J0171; J0690; J0696; J1100; J1885; J2270; J2405; J2550; J2704; J3010; J3370; J3490; P9045; Q0163; S0020

== ENCOUNTER 2021-01-16 13:17 | Outpatient (CLI) | payer BC | END 2021-01-16 13:18 | disposition home or self-care (01) | LOC: SCSRAD 13:17 | PROVIDERS: ATTEND Neurological Surgery | DX: M48.062 Spinal stenosis, lumbar region with neurogenic claudication (principal); M47.816 Spondylosis without myelopathy or radiculopathy, lumbar region; Z98.890 Other specified postprocedural states | CPT/HCPCS: 72100 ==

== ENCOUNTER 2021-08-09 10:34 | Outpatient (CLI) | payer MEDICARE | END 2021-08-09 10:35 | disposition home or self-care (01) | LOC: TBSIIMAG 10:34 | PROVIDERS: ATTEND Neurological Surgery | DX: M47.26 Other spondylosis with radiculopathy, lumbar region (principal); Z98.1 Arthrodesis status | CPT/HCPCS: 72110 ==